=== PATIENT | male | born 1950 | race Caucasian/White ===

== ENCOUNTER 2017-04-01 16:49 | Observation (INO) | END 2017-04-05 16:27 | disposition home or self-care (01) ==

== ENCOUNTER 2017-06-27 07:14 | Day surgery (SDC) | END 2017-06-27 16:00 | disposition home or self-care (01) ==

== ENCOUNTER 2017-07-19 07:16 | Day surgery (SDC) | END 2017-07-20 18:20 | disposition home or self-care (01) ==

== ENCOUNTER 2017-07-23 13:34 | Day surgery (SDC) | END 2017-07-23 16:30 | disposition home or self-care (01) ==